=== PATIENT | female | born 1955 | race African-American/Black ===

== ENCOUNTER 2018-03-02 06:40 | Emergency (ER) | payer OTHER ==
[2018-03-02] MEDS: LEVALBUTEROL (NEB) 1.25 MG/0.5 ML AMP HHN (07:09)
[2018-03-02] MEDS: IPRATROPIUM (NEB) 0.5 MG/2.5 ML AMP HHN (07:09)
[2018-03-02 07:15] LABS: ADD MAN DIFF? NO
[2018-03-02 07:18] LABS: BASOPHIL # 0.1 10^3/ul (0.0-0.1); BASOPHILS % 0.4 % (0.0-2.0); EOSINOPHILS # 0.1 10^3/ul (0.0-0.5); EOSINOPHILS % 0.5 % (0.0-7.0); HEMATOCRIT 37.4 % (37.0-47.0); HEMOGLOBIN 12.2 g/dl (12.0-16.0); LYMPHOCYTES # 0.8 10^3/ul (0.8-2.9); LYMPHOCYTES % 7.1 % (15.0-51.0); MEAN CORPUSCULAR HEMOGLOBIN 30.8 pg (29.0-33.0); MEAN CORPUSCULAR HGB CONC 32.6 g/dl (32.0-37.0); MEAN CORPUSCULAR VOLUME 94.4 fl (82.0-101.0); MEAN PLATELET VOLUME 12.8 fl (7.4-10.4); MONOCYTE # 0.9 10^3/ul (0.3-0.9); MONOCYTES % 8.1 % (0.0-11.0); NEUTROPHIL # 9.6 10^3/ul (1.6-7.5); NEUTROPHILS % 83.6 % (39.0-77.0); PLATELET COUNT 171 10^3/UL (140-415); RED BLOOD COUNT 3.96 10^6/ul (4.20-5.40); RED CELL DISTRIBUTION WIDTH 13.7 % (11.5-14.5)
[2018-03-02 07:18] LABS: WHITE BLOOD COUNT 11.5 10^3/ul (4.8-10.8)
[2018-03-02 07:40] LABS: D-DIMER 1059.18 ng/ml (<460)
[2018-03-02 07:43] LABS: ANION GAP 15 (8-16); BLOOD UREA NITROGEN 10 mg/dl (7-20); CALCIUM 9.2 mg/dl (8.4-10.2); CARBON DIOXIDE 26 mmol/L (21-31); CHLORIDE 104 mmol/L (97-110); CREATININE 0.71 mg/dl (0.44-1.00); GLUCOSE 133 mg/dl (70-220); POTASSIUM 3.9 mmol/L (3.5-5.1); SODIUM 141 mmol/L (135-144)
[2018-03-02 07:55] LABS: B-TYPE NATRIURETIC PEPTIDE 511 PG/ML (0-125); TROPONIN-I 0.013 ng/ml (0.000-0.120)
[2018-03-02] MEDS: SOD CHLORIDE 0.9% 100 ML (10:15)
[2018-03-02] MEDS: IOHEXOL 300MG/ML 150 ML BTL (10:16)
== END 2018-03-02 11:08 | disposition home or self-care (01) ==
LOC: E/R 06:40
DX: J81.0 Acute pulmonary edema (principal); I10 Essential (primary) hypertension; J45.909 Unspecified asthma, uncomplicated
CPT/HCPCS: 36415; 71045; 71275; 80048; 83880; 84484; 85025; 85378; 93005; 94640; 94664; 99285-25

== ENCOUNTER 2018-08-08 08:05 | Inpatient (IN) | payer OTHER ==
[2018-08-08 08:43] LABS: ADD MAN DIFF? NO
[2018-08-08 08:47] LABS: ABNORMAL IP MESSAGE 1; BASOPHIL # 0.1 10^3/ul (0.0-0.1); BASOPHILS % 0.6 % (0.0-2.0); EOSINOPHILS # 0.3 10^3/ul (0.0-0.5); EOSINOPHILS % 2.9 % (0.0-7.0); HEMOGLOBIN 13.3 g/dl (12.0-16.0); LYMPHOCYTES # 2.9 10^3/ul (0.8-2.9); LYMPHOCYTES % 24.8 % (15.0-51.0); MEAN CORPUSCULAR HGB CONC 30.2 g/dl (32.0-37.0); MEAN CORPUSCULAR VOLUME 99.1 fl (82.0-101.0); MEAN PLATELET VOLUME 13.1 fl (7.4-10.4); MONOCYTE # 1.1 10^3/ul (0.3-0.9); MONOCYTES % 9.1 % (0.0-11.0); NEUTROPHIL # 7.3 10^3/ul (1.6-7.5); NEUTROPHILS % 62.3 % (39.0-77.0); PLATELET COUNT 208 10^3/UL (140-415); RED BLOOD COUNT 4.44 10^6/ul (4.20-5.40); RED CELL DISTRIBUTION WIDTH 14.1 % (11.5-14.5)
[2018-08-08 08:47] LABS: WHITE BLOOD COUNT 11.8 10^3/ul (4.8-10.8)
[2018-08-08] MEDS: CEFTRIAXONE 1 GM/50 ML (PMX) 50 ML IVPB (08:57)
[2018-08-08] MEDS: METHYLPREDNISOLONE 125 MG INJ IV (08:57)
[2018-08-08] MEDS: MAGNESIUM SULFATE 2 GM/50 ML 50 ML IVPB (08:57)
[2018-08-08] MEDS: ALBUTEROL 0.5% (NEB) 2.5 MG/0.5 ML AMP INH (08:59)
[2018-08-08] MEDS: PROPOFOL 100 ML IV (08:59)
[2018-08-08] MEDS: IPRATROPIUM (NEB) 0.5 MG/2.5 ML AMP INH (09:00)
[2018-08-08 09:04] LABS: POSITIVE DIFF @See below
[2018-08-08 09:11] LABS: ANION GAP 19 (5-13); BLOOD UREA NITROGEN 9 mg/dl (7-20); CALCIUM 9.9 mg/dl (8.4-10.2); CARBON DIOXIDE 23 mmol/L (21-31); CHLORIDE 103 mmol/L (97-110); CREATININE 0.95 mg/dl (0.44-1.00); Estimated GFR > 60 mL/min (>60); GLUCOSE 185 mg/dl (70-220); POTASSIUM 3.8 mmol/L (3.5-5.1); SODIUM 145 mmol/L (135-144)
[2018-08-08 09:19] LABS: TROPONIN-I < 0.012 ng/ml (0.000-0.120)
[2018-08-08] MEDS: MIDAZOLAM (DRIP) 50 mg/50 mL 50 ML IV ×2 (09:21→17:46)
[2018-08-08] MEDS: ENALAPRILAT 1.25 MG INJ IV (09:22)
[2018-08-08] MEDS ORDERED: LORAZEPAM 4 MG/ML VIAL ×2 (09:25→09:42)
[2018-08-08 09:35] LABS: AADO2 Arterial 191.9 mmHg (7.0-24.0); Allen Test ACCEPTAB; Arterial Base Excess -7.1 mmol/L (-3.0-3); Arterial Blood Gas Oxygen Sat 95.4 mmHG (95.0-98.0); Arterial COHb 0.3 % (0.0-3.0); Arterial HCO3 21.6 mmol/L (22.0-26.0); Arterial MetHb 0.1 % (0.0-1.5); Arterial pCO2 57.8 mmhg (35-45); MODE VENT - AC; Site Right Brachial
[2018-08-08] MEDS: FUROSEMIDE 40 MG INJ IV ×2 (09:48→17:24)
[2018-08-08] MEDS: SOD CHLORIDE 0.9% 1,000 ML IV (09:49)
[2018-08-08] MEDS: LORAZEPAM 2 MG INJ IV (09:49)
[2018-08-08] MEDS ORDERED: NORepinephrine 8MG/250 ML (PMX 250 ML (10:15)
[2018-08-08] MEDS ORDERED: SUCCINYLCHOLINE CHLORIDE 100 MG/5 ML SYG IV (13:00)
[2018-08-08 13:17] LABS: AADO2 Arterial 258.3 mmHg (7.0-24.0); Allen Test ACCEPTAB; Arterial Base Excess 0.8 mmol/L (-3.0-3); Arterial Blood Gas Oxygen Sat 95.2 mmHG (95.0-98.0); Arterial COHb 0.3 % (0.0-3.0); Arterial Fraction of Oxyhgb 94.9 % (93.0-99.0); Arterial HCO3 24.9 mmol/L (22.0-26.0); Arterial MetHb 0 % (0.0-1.5); Arterial pCO2 33.2 mmhg (35-45); MODE VENT - AC; Site Right Brachial
[2018-08-08] MEDS ORDERED: ACETAMINOPHEN 650MG/20.3ML CUP PO (13:30)
[2018-08-08] MEDS ORDERED: BISACODYL 10 MG SUPP PR (13:30)
[2018-08-08] MEDS ORDERED: DOCUSATE SODIUM 100 MG CAP PO (13:30)
[2018-08-08] MEDS ORDERED: hydrALAzine 20 MG INJ IV (13:30)
[2018-08-08] MEDS ORDERED: MAGNESIUM HYDROXIDE 30ML CUP PO (13:30)
[2018-08-08] MEDS ORDERED: NITROGLYCERIN (SL) 0.4 MG TAB SL (13:30)
[2018-08-08] MEDS ORDERED: ONDANSETRON 4 MG INJ IV (13:30)
[2018-08-08] MEDS ORDERED: morphine 2 MG INJ IV (13:30)
[2018-08-08] MEDS ORDERED: ACETAMINOPHEN 650 MG SUPP PR (13:30)
[2018-08-08] MEDS: HEPARIN 5,000 UNIT/1 ML VIAL SC ×3 (14:00→21:51)
[2018-08-08] MEDS: METHYLPREDNISOLONE 40 MG INJ IV ×3 (14:14→23:36)
[2018-08-08 14:16] LABS: CREATINE KINASE 86 IU/L (23-200)
[2018-08-08] MEDS: AZITHROMYCIN 500MG/NS (PMX) 250 ML IVPB (14:22)
[2018-08-08] MEDS: HEPARIN (10 UNITS/ML) 5ML SYG IV (14:23)
[2018-08-08] MEDS: LIDOCAINE 1% (MPF) 5 ML VIAL SC (14:23)
[2018-08-08] MEDS: ALBUTEROL/IPRATROPIUM (NEB) 3 ML AMP HHN ×2 (14:28→19:42)
[2018-08-08 14:29] LABS: CK INDEX 2.7; CK-MB 2.29 ng/ml (0.0-2.4); TROPONIN-I 0.019 ng/ml (0.000-0.120)
[2018-08-08] MEDS: FENTAnyl (DRIP) 1000 mcg/100mL 100 ML IV (17:27)
[2018-08-08 20:36] LABS: CREATINE KINASE 89 IU/L (23-200)
[2018-08-08 20:50] LABS: CK-MB 1.75 ng/ml (0.0-2.4); TROPONIN-I 0.012 ng/ml (0.000-0.120)
[2018-08-08] MEDS: MONTELUKAST 10 MG TAB PO ×2 (21:00→22:00)
[2018-08-08] MEDS: FAMOTIDINE 20 MG INJ IV (21:03)
[2018-08-08] MEDS ORDERED: HYDROmorphONE 0.5 MG/0.5 ML SYG IV (23:30)
[2018-08-09] MEDS: MIDAZOLAM (DRIP) 50 mg/50 mL 50 ML IV (01:47)
[2018-08-09] MEDS: FENTAnyl (DRIP) 1000 mcg/100mL 100 ML IV (04:12)
[2018-08-09 05:34] LABS: ADD MAN DIFF? NO
[2018-08-09] MEDS: FUROSEMIDE 40 MG INJ IV ×2 (05:37→17:06)
[2018-08-09] MEDS: METHYLPREDNISOLONE 40 MG INJ IV ×3 (05:38→21:18)
[2018-08-09 05:40] LABS: WHITE BLOOD COUNT 7.9 10^3/ul (4.8-10.8)
[2018-08-09 05:40] LABS: BASOPHILS % 0.1 % (0.0-2.0); HEMATOCRIT 30.8 % (37.0-47.0); HEMOGLOBIN 10.1 g/dl (12.0-16.0); LYMPHOCYTES # 0.7 10^3/ul (0.8-2.9); LYMPHOCYTES % 8.9 % (15.0-51.0); MEAN CORPUSCULAR HGB CONC 32.8 g/dl (32.0-37.0); MEAN CORPUSCULAR VOLUME 91.4 fl (82.0-101.0); MEAN PLATELET VOLUME 12.9 fl (7.4-10.4); MONOCYTE # 0.3 10^3/ul (0.3-0.9); MONOCYTES % 4.1 % (0.0-11.0); NEUTROPHIL # 6.8 10^3/ul (1.6-7.5); NEUTROPHILS % 86.4 % (39.0-77.0); PLATELET COUNT 161 10^3/UL (140-415); RED BLOOD COUNT 3.37 10^6/ul (4.20-5.40); RED CELL DISTRIBUTION WIDTH 13.8 % (11.5-14.5)
[2018-08-09] MEDS: HEPARIN 5,000 UNIT/1 ML VIAL SC ×3 (05:47→21:19)
[2018-08-09 06:47] LABS: ANION GAP 10 (5-13); BLOOD UREA NITROGEN 20 mg/dl (7-20); CALCIUM 8.8 mg/dl (8.4-10.2); CARBON DIOXIDE 26 mmol/L (21-31); CHLORIDE 103 mmol/L (97-110); CREATININE 0.91 mg/dl (0.44-1.00); Estimated GFR > 60 mL/min (>60); GLUCOSE 142 mg/dl (70-220); MAGNESIUM 2.1 mg/dl (1.7-2.5); PHOSPHORUS 4.2 mg/dl (2.5-4.9); POTASSIUM 3.6 mmol/L (3.5-5.1); SODIUM 139 mmol/L (135-144)
[2018-08-09] MEDS: ALBUTEROL/IPRATROPIUM (NEB) 3 ML AMP HHN ×3 (07:32→21:02)
[2018-08-09 07:38] LABS: Allen Test ACCEPTAB; Arterial Base Excess -1.2 mmol/L (-3.0-3); Arterial Blood Gas Oxygen Sat 97.4 mmHG (95.0-98.0); Arterial COHb 0.2 % (0.0-3.0); Arterial HCO3 21.6 mmol/L (22.0-26.0); Arterial MetHb 0.2 % (0.0-1.5); Arterial pCO2 30.4 mmhg (35-45); MODE TRACH COLLAR; Site Right Radial
[2018-08-09] MEDS: FLUTICASONE/VILANTEROL 200-25 INH DEVICE INH (09:00)
[2018-08-09] MEDS: LOSARTAN 50 MG TAB PO (09:17)
[2018-08-09] MEDS: AMLODIPINE 5 MG TAB PO (09:17)
[2018-08-09] MEDS: FAMOTIDINE 20 MG INJ IV ×2 (09:17→21:18)
[2018-08-09] MEDS ORDERED: METHYLPREDNISOLONE 40 MG INJ IV (09:30)
[2018-08-09 09:32] LABS: B-TYPE NATRIURETIC PEPTIDE 272 PG/ML (0-125)
[2018-08-09] MEDS: CEFTRIAXONE 2 GM/50 ML (PMX) 50 ML IVPB (10:45)
[2018-08-09] MEDS: AZITHROMYCIN 500MG/NS (PMX) 250 ML IVPB (10:45)
[2018-08-09 10:56] LABS: AADO2 Arterial 168.7 mmHg (7.0-24.0); Allen Test ACCEPTAB; Arterial Base Excess 0.6 mmol/L (-3.0-3); Arterial Blood Gas Oxygen Sat 93.6 mmHG (95.0-98.0); Arterial COHb 0.3 % (0.0-3.0); Arterial Fraction of Oxyhgb 93.3 % (93.0-99.0); Arterial HCO3 24.8 mmol/L (22.0-26.0); Arterial MetHb 0 % (0.0-1.5); Arterial pCO2 38.2 mmhg (35-45); Blood Gas PS 10; MODE VENT - CPAP; Site Right Radial
[2018-08-09] MEDS: MONTELUKAST 10 MG TAB PO (21:18)
[2018-08-10 05:17] LABS: ADD MAN DIFF? NO
[2018-08-10 05:18] LABS: ABNORMAL IP MESSAGE 1; BASOPHILS % 0.1 % (0.0-2.0); LYMPHOCYTES % 5.6 % (15.0-51.0); MEAN CORPUSCULAR HGB CONC 31.5 g/dl (32.0-37.0); MEAN CORPUSCULAR VOLUME 95.2 fl (82.0-101.0); MEAN PLATELET VOLUME 13.7 fl (7.4-10.4); MONOCYTE # 0.9 10^3/ul (0.3-0.9); MONOCYTES % 5.4 % (0.0-11.0); NEUTROPHIL # 15.2 10^3/ul (1.6-7.5); NEUTROPHILS % 88.2 % (39.0-77.0); PLATELET COUNT 208 10^3/UL (140-415); RED CELL DISTRIBUTION WIDTH 14.3 % (11.5-14.5)
[2018-08-10 05:18] LABS: WHITE BLOOD COUNT 17.3 10^3/ul (4.8-10.8)
[2018-08-10 05:31] LABS: HEMOGLOBIN 6.3 g/dl (12.0-16.0); POSITIVE DIFF @See below
[2018-08-10 05:50] LABS: MAGNESIUM 2.4 mg/dl (1.7-2.5)
[2018-08-10 05:50] LABS: PHOSPHORUS 5.4 mg/dl (2.5-4.9)
[2018-08-10 05:56] LABS: ANION GAP 12 (5-13); BLOOD UREA NITROGEN 26 mg/dl (7-20); CALCIUM 9.1 mg/dl (8.4-10.2); CARBON DIOXIDE 29 mmol/L (21-31); CHLORIDE 100 mmol/L (97-110); CREATININE 0.95 mg/dl (0.44-1.00); Estimated GFR > 60 mL/min (>60); GLUCOSE 136 mg/dl (70-220); POTASSIUM 4.4 mmol/L (3.5-5.1); SODIUM 141 mmol/L (135-144)
[2018-08-10] MEDS: FUROSEMIDE 40 MG INJ IV (06:24)
[2018-08-10] MEDS: METHYLPREDNISOLONE 40 MG INJ IV ×3 (06:24→21:04)
[2018-08-10] MEDS: HEPARIN 5,000 UNIT/1 ML VIAL SC ×3 (06:41→21:19)
[2018-08-10] MEDS: LOSARTAN 50 MG TAB PO (08:33)
[2018-08-10] MEDS: FLUTICASONE/VILANTEROL 200-25 INH DEVICE INH (08:33)
[2018-08-10] MEDS: FAMOTIDINE 20 MG INJ IV (08:34)
[2018-08-10 08:36] LABS: HEMATOCRIT 34.5 % (37.0-47.0); HEMOGLOBIN 11.1 g/dl (12.0-16.0)
[2018-08-10] MEDS: AMLODIPINE 5 MG TAB PO (08:36)
[2018-08-10] MEDS: CEFTRIAXONE 2 GM/50 ML (PMX) 50 ML IVPB (09:33)
[2018-08-10] MEDS: AZITHROMYCIN 500MG/NS (PMX) 250 ML IVPB (09:33)
[2018-08-10] MEDS: ALBUTEROL/IPRATROPIUM (NEB) 3 ML AMP HHN ×3 (10:21→20:02)
[2018-08-10] MEDS ORDERED: HYDROmorphONE 2 MG TAB PO (11:30)
[2018-08-10] MEDS: IOHEXOL 100 ML (18:02)
[2018-08-10] MEDS: SOD CHLORIDE 0.9% 100 ML (18:02)
[2018-08-10] MEDS: MONTELUKAST 10 MG TAB PO (21:04)
[2018-08-10] MEDS: FAMOTIDINE 20 MG TAB PO (21:04)
[2018-08-11] MEDS: METHYLPREDNISOLONE 40 MG INJ IV ×3 (06:07→22:04)
[2018-08-11] MEDS: HEPARIN 5,000 UNIT/1 ML VIAL SC ×3 (06:11→22:21)
[2018-08-11 06:48] LABS: ADD MAN DIFF? NO
[2018-08-11 06:54] LABS: WHITE BLOOD COUNT 11.5 10^3/ul (4.8-10.8)
[2018-08-11 06:54] LABS: ABNORMAL IP MESSAGE 1; BASOPHILS % 0.1 % (0.0-2.0); HEMATOCRIT 32.7 % (37.0-47.0); HEMOGLOBIN 10.3 g/dl (12.0-16.0); LYMPHOCYTES # 0.6 10^3/ul (0.8-2.9); LYMPHOCYTES % 4.9 % (15.0-51.0); MEAN CORPUSCULAR HEMOGLOBIN 29.8 pg (29.0-33.0); MEAN CORPUSCULAR HGB CONC 31.5 g/dl (32.0-37.0); MEAN CORPUSCULAR VOLUME 94.5 fl (82.0-101.0); MEAN PLATELET VOLUME 12.8 fl (7.4-10.4); MONOCYTE # 0.8 10^3/ul (0.3-0.9); MONOCYTES % 7.1 % (0.0-11.0); NEUTROPHILS % 87.2 % (39.0-77.0); PLATELET COUNT 160 10^3/UL (140-415); RED BLOOD COUNT 3.46 10^6/ul (4.20-5.40); RED CELL DISTRIBUTION WIDTH 14.1 % (11.5-14.5)
[2018-08-11 06:59] LABS: POSITIVE DIFF @See below
[2018-08-11 07:12] LABS: ANION GAP 17 (5-13); BLOOD UREA NITROGEN 31 mg/dl (7-20); CALCIUM 8.9 mg/dl (8.4-10.2); CARBON DIOXIDE 33 mmol/L (21-31); CHLORIDE 91 mmol/L (97-110); CREATININE 0.84 mg/dl (0.44-1.00); Estimated GFR > 60 mL/min (>60); GLUCOSE 133 mg/dl (70-220); POTASSIUM 4.7 mmol/L (3.5-5.1); SODIUM 141 mmol/L (135-144)
[2018-08-11 07:25] LABS: MAGNESIUM 2.4 mg/dl (1.7-2.5)
[2018-08-11 07:25] LABS: PHOSPHORUS 4.2 mg/dl (2.5-4.9)
[2018-08-11] MEDS: ALBUTEROL/IPRATROPIUM (NEB) 3 ML AMP HHN ×3 (07:45→20:13)
[2018-08-11] MEDS: FAMOTIDINE 20 MG TAB PO ×2 (09:54→22:05)
[2018-08-11] MEDS: FUROSEMIDE 40 MG INJ IV (09:54)
[2018-08-11] MEDS: AMLODIPINE 5 MG TAB PO (09:54)
[2018-08-11] MEDS: LOSARTAN 50 MG TAB PO (09:54)
[2018-08-11] MEDS: FLUTICASONE/VILANTEROL 200-25 INH DEVICE INH (10:42)
[2018-08-11] MEDS: CEFTRIAXONE 2 GM/50 ML (PMX) 50 ML IVPB (11:28)
[2018-08-11] MEDS: AZITHROMYCIN 500MG/NS (PMX) 250 ML IVPB (12:13)
[2018-08-11] MEDS: INFLUENZA VIRUS VACCINE 0.5 ML (DISPENSING) IM* (13:26)
[2018-08-11] MEDS: MONTELUKAST 10 MG TAB PO (22:04)
[2018-08-12] MEDS: METHYLPREDNISOLONE 40 MG INJ IV (05:16)
[2018-08-12] MEDS: FUROSEMIDE 40 MG TAB PO (05:18)
[2018-08-12] MEDS: HEPARIN 5,000 UNIT/1 ML VIAL SC ×3 (05:47→21:19)
[2018-08-12] MEDS: ALBUTEROL/IPRATROPIUM (NEB) 3 ML AMP HHN ×3 (08:12→19:17)
[2018-08-12] MEDS: AMLODIPINE 5 MG TAB PO (08:43)
[2018-08-12] MEDS: LOSARTAN 50 MG TAB PO (08:43)
[2018-08-12] MEDS: FAMOTIDINE 20 MG TAB PO ×2 (08:43→21:17)
[2018-08-12] MEDS: CEFTRIAXONE 2 GM/50 ML (PMX) 50 ML IVPB (08:43)
[2018-08-12] MEDS: FLUTICASONE/VILANTEROL 200-25 INH DEVICE INH (08:44)
[2018-08-12] MEDS: AZITHROMYCIN 500MG/NS (PMX) 250 ML IVPB (09:59)
[2018-08-12] MEDS: predniSONE 10 MG TAB PO (12:16)
[2018-08-12] MEDS: MONTELUKAST 10 MG TAB PO (21:17)
[2018-08-13] MEDS: FUROSEMIDE 40 MG TAB PO (06:02)
[2018-08-13] MEDS: HEPARIN 5,000 UNIT/1 ML VIAL SC (06:04)
[2018-08-13 06:13] LABS: ADD MAN DIFF? NO
[2018-08-13 06:21] LABS: ABNORMAL IP MESSAGE 1; BASOPHILS % 0.1 % (0.0-2.0); EOSINOPHILS % 0.2 % (0.0-7.0); HEMATOCRIT 33.7 % (37.0-47.0); HEMOGLOBIN 10.5 g/dl (12.0-16.0); LYMPHOCYTES # 1.4 10^3/ul (0.8-2.9); LYMPHOCYTES % 12.5 % (15.0-51.0); MEAN CORPUSCULAR HEMOGLOBIN 29.7 pg (29.0-33.0); MEAN CORPUSCULAR HGB CONC 31.2 g/dl (32.0-37.0); MEAN CORPUSCULAR VOLUME 95.2 fl (82.0-101.0); MEAN PLATELET VOLUME 12.9 fl (7.4-10.4); MONOCYTE # 1.5 10^3/ul (0.3-0.9); MONOCYTES % 13.8 % (0.0-11.0); PLATELET COUNT 173 10^3/UL (140-415); RED BLOOD COUNT 3.54 10^6/ul (4.20-5.40)
[2018-08-13 06:35] LABS: POSITIVE DIFF @See below
[2018-08-13 06:58] LABS: MAGNESIUM 2.2 mg/dl (1.7-2.5)
[2018-08-13 06:58] LABS: PHOSPHORUS 3.8 mg/dl (2.5-4.9)
[2018-08-13 07:00] LABS: ANION GAP 5 (5-13); BLOOD UREA NITROGEN 31 mg/dl (7-20); CALCIUM 8.7 mg/dl (8.4-10.2); CARBON DIOXIDE 34 mmol/L (21-31); CHLORIDE 102 mmol/L (97-110); CREATININE 0.84 mg/dl (0.44-1.00); Estimated GFR > 60 mL/min (>60); GLUCOSE 109 mg/dl (70-220); POTASSIUM 4.3 mmol/L (3.5-5.1); SODIUM 141 mmol/L (135-144)
[2018-08-13] MEDS: FLUTICASONE/VILANTEROL 200-25 INH DEVICE INH (08:51)
[2018-08-13] MEDS: CEFTRIAXONE 2 GM/50 ML (PMX) 50 ML IVPB (08:51)
[2018-08-13] MEDS: LOSARTAN 50 MG TAB PO (08:52)
[2018-08-13] MEDS: AMLODIPINE 5 MG TAB PO (08:52)
[2018-08-13] MEDS: FAMOTIDINE 20 MG TAB PO (08:52)
[2018-08-13] MEDS: AZITHROMYCIN 500MG/NS (PMX) 250 ML IVPB (08:57)
[2018-08-13] MEDS: ALBUTEROL/IPRATROPIUM (NEB) 3 ML AMP HHN (09:40)
[2018-08-13] MEDS: predniSONE 20 MG TAB PO (10:24)
== END 2018-08-13 14:20 | disposition home or self-care (01) | DRG 208 ==
LOC: 6WM 08-11 09:07 → E/R 08:05 → TEL 08-10 14:29 → ICU 09:27
PROC: 5A1935Z Respiratory Ventilation, Less than 24 Consecutive Hours (ICD-10-PCS; principal; 2018-08-08)
PROC: 0BH17EZ Insertion of Endotracheal Airway into Trachea, Via Natural or Artificial Opening (ICD-10-PCS; 2018-08-08)
PROC: 02HV33Z Insertion of Infusion Device into Superior Vena Cava, Percutaneous Approach (ICD-10-PCS; 2018-08-08)
PROC: B548ZZA Ultrasonography of Superior Vena Cava, Guidance (ICD-10-PCS; 2018-08-08)
DX: J45.901 Unspecified asthma with (acute) exacerbation (principal); J18.9 Pneumonia, unspecified organism; J96.01 Acute respiratory failure with hypoxia; I50.33 Acute on chronic diastolic (congestive) heart failure; J96.02 Acute respiratory failure with hypercapnia; Z68.41 Body mass index [BMI] 40.0-44.9, adult; I42.9 Cardiomyopathy, unspecified; Z99.81 Dependence on supplemental oxygen; E66.01 Morbid (severe) obesity due to excess calories; I11.0 Hypertensive heart disease with heart failure; D64.9 Anemia, unspecified; I05.2 Rheumatic mitral stenosis with insufficiency
CPT/HCPCS: 31500; 36569; 36600; 71045; 71275; 76937; 80048; 82550; 82553; 82803; 83605; 83735; 83880; 84100; 84484; 85014; 85018; 85025; 87040; 87081; 87400; 90686; 93005; 93306; 94002; 94003; 94640; 94644; 94664; 94770; 96365; 96368; 96375; 97162; 99291-25